=== PATIENT | male | born 1945 | race Caucasian/White ===

== ENCOUNTER 2023-03-20 21:49 | Emergency (ER) | payer MEDICARE, BC ==
[~2023-03-20] VITALS: Ht 177.8 cm; Wt 83.9 kg
[~2023-03-20 21:49] MED LIST: SULF1TAB48 PO
[2023-03-20 21:59] VITALS: BP 141/71; TEMP 98
[2023-03-20] MEDS ORDERED: FAMOTIDINE (20 MG) 20 MG TABLET ONE (22:27)
[2023-03-20] MEDS ORDERED: diphenhydrAMINE HCL ELIX 25 MG/10 ML UDC ONE (22:27)
[2023-03-20] MEDS ORDERED: diphenhydrAMINE HCL ELIX 25 MG/10 ML UDC PO ONE (22:30)
[2023-03-20] MEDS ORDERED: FAMOTIDINE (20 MG) 20 MG TABLET PO ONE (22:30)
[2023-03-20] MEDS ORDERED: CEPH500C2 PO (23:24)
[2023-03-20] MEDS ORDERED: CIPR500T5 PO (23:24)
[2023-03-20 23:31] VITALS: O2SAT 98
[2023-03-20] MEDS ORDERED: LEVO500T90 PO (23:31)
== END 2023-03-20 23:32 | disposition home or self-care (01) ==
LOC: ER 22:01
DX: R21 Rash and other nonspecific skin eruption (principal); I10 Essential (primary) hypertension; Z79.899 Other long term (current) drug therapy; T78.40XA Allergy, unspecified, initial encounter; X58.XXXA Exposure to other specified factors, initial encounter
CPT/HCPCS: 99283; Q0163

== ENCOUNTER 2023-03-22 10:06 | Emergency (ER) | payer MEDICARE, BC ==
[~2023-03-22] VITALS: Ht 177.8 cm; Wt 83.0 kg
[~2023-03-22 10:06] MED LIST changes: +LEVO500T90 PO
[2023-03-22 10:32] VITALS: BP 144/93; TEMP 98.3; O2SAT 97
== END 2023-03-22 10:32 | disposition home or self-care (01) ==
LOC: ER 10:09
DX: R21 Rash and other nonspecific skin eruption (principal); I10 Essential (primary) hypertension; Z79.899 Other long term (current) drug therapy; T36.8X5A Adverse effect of other systemic antibiotics, initial encounter; Y92.89 Other specified places as the place of occurrence of the external cause